=== PATIENT | female | born 1935 | race Caucasian/White ===

== ENCOUNTER → 2017-03-02 | Outpatient (CLI) | payer OTHER, MEDICARE ==
[~2017-03-02] VITALS: Ht 167.6 cm; Wt 81.6 kg
[~2017-03-02] MED LIST: ALL DAY ALLERGY10 M2 PO; AMBEREN; APAP500; APAP500 PO; ASPIRIN EC81 M1 PO; CALCIUM 500+D1 EAC2 PO; CALCIUM CITRAT1 EA19 PO; CELEBREX 200 M200 M1 PO; CLARITIN10 MG PO; COLACE100 MG PO; DEPAKOTE 250MG250 MG PO; DIAZEPAM PO; EFFEXOR XR150 MG PO; EFFEXOR XR75 MG PO; EFFEXOR75 MG PO; ELIQUIS2.5 MG PO; ELIQUIS5 MG PO; FISH OIL + D31 EACH PO; FISH OIL 1,0001 EAC5 PO; FISHOIL; FLEXERIL PO; GLUCOPHAGE XR500 MG PO; HM VITAMIN B-10.4 MG PO; HYDROCODON-ACE1 EAC7 PO; IBUPROFEN 200200 M1 PO; LORTAB 5 MG/5001 TA1 PO; LOVASTAT40 PO; MAGOX 400400 MG PO; MELOXICAM7.5 MG PO; METAMUCIL283 GM PO; MILLTRIUM SENI1 EACH PO; MOBIC7.5 M1 PO; MULTI VITAMIN1 EACH PO; NEURONTIN 300300 M1 PO; NORTRIPTYLINE H10 M1 PO; OMEPRAZOLE 20 M20 M1 PO; PERCOCET 5-3251 EACH PO; PRESERVISION A1 EAC1 PO; PRESERVISION T1 EACH PO; RESTORIL15 M1 PO; SENOKOT-S1 TA1 PO; SUPER B COMPLE150 MG PO; TOPAMAX50 MG; TOPROL XL50 MG PO; TRAMADOL 50 MG50 MG PO; TRIAMTERENE-HC1 EAC1 PO; TYLENOL EXTRA500 MG PO; TYLENOL325 MG PO; VITAMINC500 PO; WELLBUTRIN SR150 MG PO; ZOLOFT50 MG PO; ZYRTEC10 M5 PO
--- NOTE | ~2017-03-02 | S ---
[facility] [address] [place] [address] SURGICAL PATH RPT PROCEDURE Name: FILI HIRSCH Room #: REG RAH Motley.#: [id number] Admission: 03/02/17 Date of : 35 Discharge: Report #: [id number] Path Case #: [id number] PATHOLOGY REPORT DRAFT COLLECTION DATE: 03/02/2017 RECEIVED DATE: 03/02/2017 SPECIMEN(S) RECEIVED: A.Ascending colon polyp
--- NOTE | ~2017-03-02 | P ---
[facility] [place] [address] PROCEDURE REPORT Name: JOYCELYNFILI ANN Room #: REG [facility] Shawn#: [id number] Admission: 03/02/17 Attend Phys: Jadon Saleem Discharge: Date of : 35 Report #: [id number] THIS REPORT FOR: //name// CC: Jadon Silva MD DATE OF SERVICE: 03/02/2017 PROCEDURE PERFORMED: Upper endoscopy with esophageal dilation. HISTORY OF PRESENT ILLNESS: The patient is an 81-year-old female with dysphagia, previous history of Schatzki's ring who was dilated in the past. She is complaining of dysphagia again. PROCEDURE: The risks and benefits of the procedure were explained to the patient, those risks including, but not limited to bleeding, perforation, and the risk of sedation. She understood these risks and gave informed consent. Sedation was given using propofol per anesthesia. Next, using a standard BONDinon upper endoscope, the scope was placed in the patient's mouth and advanced under direct vision through the esophagus, stomach and into the second portion of the duodenum. The upper and mid esophagus was normal in appearance. In the distal esophagus, there was once again noted a Schatzki's ring, no evidence of esophagitis. Upon entering the stomach, a medium-sized hiatal hernia was noted. Overall, the gastric mucosa was normal. The pylorus was normal and patent. The duodenal bulb, first and second portion were all normal. The scope was then brought back up into the patient's stomach and a Savary guidewire was inserted through the scope, leaving the guidewire in place as the scope was then withdrawn. Next, a 42-Surinamese Savary dilation was performed without difficulty. The wire and dilator were removed. The scope was reintroduced into the patient's stomach. A small mucosal tear was noted. No significant bleeding was noted. At this point, the scope was then withdrawn and the procedure terminated. The patient tolerated the procedure well. IMPRESSION: 1. Schatzki's ring. 2. Hiatal hernia. RECOMMENDATIONS: Observe the patient status post dilation. Thank you for allowing me to participate in her care. By: [id number] Jadon Alexander MD /nt
--- NOTE | ~2017-03-02 | P ---
[facility] [place] [address] PROCEDURE REPORT Name: FILI HIRSCH SARKIS Room #: REG [facility] Shawn#: [id number] Admission: 03/02/17 Attend Phys: Jadon Saleem Discharge: Date of : 35 Report #: [id number] THIS REPORT FOR: //name// CC: Jadon Silva MD DATE OF SERVICE: 03/02/2017 PROCEDURE PERFORMED: Colonoscopy with biopsies. HISTORY OF PRESENT ILLNESS: The patient is an 81-year-old female with an episode of bright red blood per rectum last week. She had been taking Eliquis. She has now been holding this medication. This was not associated with abdominal pain, diarrhea or constipation. She has had no further bleeding since. Plan is for colonoscopy. DESCRIPTION OF PROCEDURE: The risks and benefits of the procedure were explained to the patient, those risks including but not limited to bleeding, perforation, the risk of sedation. She understood these risks and gave informed consent. Sedation was given using propofol per anesthesia. Next, a digital rectal exam was initially performed, which was normal. Next, using a standard [place].cominon colonoscope, the scope was placed in the patient's anus and advanced under direct vision to the cecum. The overall prep was good. The cecum and ileocecal valve were normal in appearance. In the ascending colon, there was a 5 mm sessile polyp. This was removed with cold forceps, otherwise normal. The transverse and descending colon were normal. Multiple diverticula were noted in the sigmoid colon, no evidence of bleeding. The rectal mucosa was normal. On retroflexion, small to medium sized nonbleeding internal hemorrhoids were noted. The scope was then withdrawn and the procedure terminated. The patient tolerated the procedure well. IMPRESSION: 1. Small colonic polyp. 2. Sigmoid diverticulosis. 3. Internal hemorrhoids, medium sized. 4. Otherwise, normal colonoscopy. RECOMMENDATIONS: 1. Await biopsy results. 2. Suspect recent bleeding was due to internal hemorrhoids, although a diverticular bleed is also a possibility. There was no evidence of bleeding on exam today. We would recommend restarting Eliquis and observing. [facility] [address] [place] [place] [address] PROCEDURE REPORT Name: FILI HIRSCH [facility] Room #: REG RA[facility] Motley.#: [id number] Admission: 03/02/17 Attend Phys: Jadon Saleem Discharge: Date of : 35 Report #: [id number] Thank you for allowing me to participate in her care. By: [id number] Jadon Alexander MD /nt
== END ==
LOC: GI 08:40
DX: K63.5 Polyp of colon (principal); K57.30 Diverticulosis of large intestine without perforation or abscess without bleeding; K64.8 Other hemorrhoids; K22.2 Esophageal obstruction; K44.9 Diaphragmatic hernia without obstruction or gangrene; F32.9 Major depressive disorder, single episode, unspecified; I48.91 Unspecified atrial fibrillation; I10 Essential (primary) hypertension; E78.5 Hyperlipidemia, unspecified; E78.00 Pure hypercholesterolemia, unspecified; E11.9 Type 2 diabetes mellitus without complications; D46.9 Myelodysplastic syndrome, unspecified; Z79.899 Other long term (current) drug therapy; Z87.891 Personal history of nicotine dependence; Z98.890 Other specified postprocedural states

== ENCOUNTER → 2017-04-11 | Outpatient (CLI) | payer OTHER, MEDICARE | LOC: RAD 01:40 | DX: Z12.31 Encounter for screening mammogram for malignant neoplasm of breast (principal) ==